=== PATIENT | male | born 1975 | race Caucasian/White ===

== ENCOUNTER → 2024-07-24 07:08 | Outpatient (CLI) | payer OTHER, SELFPAY ==
--- NOTE | 2024-07-24 | DI.MRI.S_ITS ---
PROCEDURE: MR KNEE LT WO CON INDICATIONS: Internal derangement of left knee TECHNIQUE: Noncontrast sagittal PD fast spin echo and T2 fast spin echo with fat saturation, sagittal 3-D FLASH with fat saturation; coronal T1 spin echo and PD fast spin echo with fat saturation, and axial PD fast spin echo with fat saturation through the knee. COMPARISON: [facility] [place], CR, XR KNEE 4+ VIEWS LEFT, 07/09/2024, 17:12. FINDINGS: Image quality: Excellent. Anterior cruciate ligament: Postsurgical changes are seen from prior anterior cruciate ligament reconstruction. The femoral tunnel is located at the 1-2 o'clock position in the intercondylar notch with the orifice approximately 7 mm from the intersection of the posterior femoral cortex with Blumensaat's line. The tibial tunnel is located in the middle third of the central tibial plateau. The anterior cruciate ligament graft is intact. There is no significant arthrofibrosis. Posterior cruciate ligament: Intact. Medial collateral ligament: Intact. Lateral collateral ligament: Intact. Medial meniscus: Intrasubstance signal in the posterior horn and body of the medial meniscus extending to the tibial articular surface may represent fibrovascular granulation tissue if there has been prior surgery versus nondisplaced tearing. Lateral meniscus: Diffuse horizontal/oblique tearing of the lateral meniscus involving the body and the adjacent portions of the anterior and posterior horns extending to the tibial articular surface and the free edge margin. Lobular paralabral cyst at the junction of the anterior horn and body measures approximately 7 x 14 x 20 mm. Medial and lateral tendons: The semimembranosus tendon insertions appear intact. Visualized portions of the pes anserinus tendons appear normal. The popliteus tendon is intact. Iliotibial band appears normal. Anterior structures: The quadriceps and patellar tendons appear intact. No patellar subluxation. No femoral trochlear dysplasia or ventral trochlear prominence. Mild scarring in the infrapatellar fat pad. Bones: No bone marrow contusions or fractures. Medial femorotibial cartilage: Mild focal cartilage fissuring and subchondral edema at the central posterior weight-bearing portion of the medial femoral condyle. Lateral femorotibial cartilage: Focal high-grade versus full-thickness cartilage loss at the posterior weight-bearing portion of the lateral femoral condyle. Patellofemoral cartilage: Multifocal deep cartilage fissuring in the patellar cartilage with focal subchondral edema. Trochlear cartilage appears to be intact. Soft tissues: 5 mm loose body is seen anterior to the anterior root attachment of the lateral meniscus. Moderate joint effusion. No significant medial popliteal cyst. IMPRESSION: 1. Postsurgical changes from anterior cruciate ligament reconstruction with tunnel positioning as described in the body of the report. The anterior cruciate ligament graft is intact. 2. Diffuse horizontal oblique tearing of the lateral meniscus involving the body in the adjacent portions of the anterior and posterior horns extending to the free margin and tibial articular surface. A lobular paralabral cyst is seen anterolaterally measuring 7 x 14 x 20 mm. 3. Intrasubstance signal in the posterior horn and body of the medial meniscus extending to the tibial articular surface may represent fibrovascular granulation tissue versus nondisplaced tearing. 4. 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 Small areas of partial-thickness cartilage irregularity and cartilage fissuring are seen in the medial and anterior compartments. 5. Moderate joint effusion. 5 mm loose body anterior to the anterior root attachment of the lateral meniscus. Approved by: Dez Moseley M.D. on 07/24/2024 at 10:07
== END ==
PROVIDERS: PCP Acupuncturist; Referring Provider Orthopaedic Surgery Foot and Ankle Surgery; Visit Provider Orthopaedic Surgery Foot and Ankle Surgery
DX: M23.92 Unspecified internal derangement of left knee (principal); Z98.890 Other specified postprocedural states; S83.282A Other tear of lateral meniscus, current injury, left knee, initial encounter; M25.862 Other specified joint disorders, left knee; M94.262 Chondromalacia, left knee; M25.462 Effusion, left knee; M23.42 Loose body in knee, left knee
CPT/HCPCS: 73721